=== PATIENT | female | born 1985 ===

== ENCOUNTER 2017-03-10 18:59 | Emergency (ER) | payer MEDICAID ==
[2017-03-10 20:48] VITALS: BP 109/73; PULSE 76; RESP 17; TEMP 98.3; O2SAT 99
--- NOTE | 2017-03-10 21:28 | ED PDOC ---
Lower Extremity Pain/Injury Time Seen by Provider: 03/10/17 20:52 Chief Complaint (Nursing): Lower Extremity Problem/Injury History Per: Patient History/Exam Limitations: no limitations Onset/Duration Of Symptoms: Days Current Symptoms Are (Timing): Still Present Additional Complaint(s): 38 wks , sent down from OB clinic (after being cleared) for eval of RLE swelling x months. no trauma. no sob or other complaints. Past Medical History Reviewed: Historical Data, Nursing Documentation, Vital Signs Vital Signs: Last Vital Signs Temp 98.3 F 03/10/17 20:42 Pulse 76 03/10/17 20:42 Resp 17 03/10/17 20:42 BP 109/73 03/10/17 20:42 Pulse Ox 99 03/10/17 20:42 - Family History Family History: States: Unknown Family Hx - Allergies Allergies/Adverse Reactions: Allergies Allergy/AdvReac Type Severity Reaction Status Date / Time No Known Allergies Allergy Verified 03/10/17 20:46 Physical Exam - Reviewed Nursing Documentation Reviewed: Yes - Physical Exam Appears: Positive for: Well, Non-toxic, No Acute Distress Head Exam: Positive for: ATRAUMATIC, NORMAL INSPECTION, NORMOCEPHALIC Skin: Positive for: Normal Color, Warm, DRY Eye Exam: Positive for: EOMI, Normal appearance, PERRL ENT: Positive for: Normal ENT Inspection Neck: Positive for: Normal, Painless ROM Cardiovascular/Chest: Positive for: Regular Rate, Rhythm Respiratory: Positive for: CNT, Normal Breath Sounds Gastrointestinal/Abdominal: Positive for: Normal Exam, Bowel Sounds, Soft Back: Positive for: Normal Inspection Extremity: Positive for: Pedal Edema (R foot swelling worse than L, mild swelling to R thigh and varicosities ) Neurologic/Psych: Positive for: Alert, Oriented - ECG O2 Sat by Pulse Oximetry: 99 Medical Decision Making Medical Decision Making: r/o DVT, likely dependent edema and varicose veins 2/2 to 1040PM: IMPRESSION: No DVT in visualized veins of the right lower extremity. Told patient to f/u w/ OB, return precautions given. Will d/c home. Disposition - Clinical Impression Clinical Impression: Swelling of lower extremity during - Patient ED Disposition Is Patient to be Admitted: No - Disposition [facility] Disposition: Routine/Home Disposition Time: 22:45 Condition: STABLE Instructions: Leg Edema (ED) Print Language: POLISH
--- NOTE | 2017-03-10 22:31 | US ---
EXAM: US Duplex Right Lower Extremity Veins CLINICAL HISTORY: 31 years old, female; Signs and symptoms; Swelling of limb; Lower extremity, right; Additional info: R/O dvt, 38 wks preg TECHNIQUE: Real-time ultrasound scan of the veins of the right lower extremity with color Doppler flow, spectral waveform analysis and compression. COMPARISON: No relevant prior studies available. FINDINGS: No DVT in the visualized common femoral, femoral, proximal deep femoral, popliteal or posterior tibial veins. The veins are compressible with normal color flow and augmentation. IMPRESSION: No DVT in visualized veins of the right lower extremity.
== END 2017-03-10 23:09 | disposition home or self-care (01) ==
LOC: H.ER 18:59
DX: R60.0 Localized edema (principal); Z33.1 Pregnant state, incidental

== ENCOUNTER 2017-03-16 02:25 | Inpatient (IN) | payer MEDICAID ==
[2017-03-16 03:15] VITALS: BMI 27.3
[2017-03-16 04:17] LABS: BASO # 0.1 K/uL (0.0-0.2); BASO % 0.7 % (0.0-2.0); EOS % 0.4 % (0.0-4.0); HEMATOCRIT 29.1 % (34.0-47.0); LYMPH # 1.7 K/uL (1.0-4.3); LYMPH % 21.5 % (20.0-40.0); MEAN CELL VOLUME 81.4 fl (81.0-99.0); MEAN CORPUSCULAR HGB CONC 33.1 g/dL (33.0-37.0); MEAN PLATELET VOLUME 10.9 fl (7.2-11.7); MONO # 0.6 K/uL (0.0-0.8); MONO % 7.4 % (0.0-10.0); NEUT # 5.4 K/uL (1.8-7.0); NRBC % 0.2 % (0.0-0.0); RED CELL DISTRIBUTION WIDTH 15.5 % (11.5-14.5); WHITE BLOOD COUNT 7.7 K/uL (4.8-10.8)
[2017-03-16 06:14] VITALS: BP 134/80; PULSE 69; RESP 18; TEMP 98.9; O2SAT 100
--- NOTE | 2017-03-16 06:36 | OBHP ---
Datetime: 03/16/2017 03:33 IP Adm Impression: Term, intrauterine ; Active labor; Ruptured Membranes IP Admit Plan: Admit to unit; Initiate labor protocol Admit Comment, IP Provider: PABLO [id number] 31 y/o @ 39 weeks presents with LOF. Pt reports feeling gush of fluid at 1:15am which woke he r up. The LOF is associated with CTX that she has been feeling since yesterday afternoon. CTX are abo ut 10 minutes apart and 3/10 in pain. No other complaints. Denies VB and reports good FM. POBhx: , all , no complications : Blood type O+, GBS neg, Rubella Immune, no third trimester labs available PMHx:none Meds: PNVs only PsurgHx: none PhospHx: none other than for deliveries Familial Hx: neg and nonpertient Social: denies ETOH, tobacco, drug use A/P: 31 y/o @ 38 weeks IUP -admit to unit -Cervidil -CBC, Type and Screen, RPR, HIV - monitoring -case discussed with Dr. Jovany Wilson MD PGY1 @3:40am The patient was seen with resident I agree with the notes. Patient noted to have un ripe cervix ru ptured membranes start Cervidil adequate pelvis vertex presentation anticipate vaginal delivery estim ated weight 7-1/2 pounds Pelvic Type - PN: Adequate Extremities - PN: Normal Abdomen - PN: Normal Back - PN: Normal Breast - PN: Normal Lungs - PN: Normal Heart - PN: Normal Thyroid - PN: Normal Neurologic - PN: Normal HEENT - PN: Normal General - PN: Normal FHR - Baseline A Provider: 141 Amniotic Fluid Color, Provider: Clear Membranes, Provider: Ruptured Contraction Comments Provider: yes Pool Provider: Positive Nitrazine Provider: Positive EGA AdmitDate IP: 39.0 Vital Signs Provider: Reviewed; Within Normal Limits IP Chief Complaint: Uterine contractions; Suspected ruptured membranes NICHD Variability Prov Fetus A: Moderate 6-25bpm NICHD Accel Fetus A IP Provider: [id number] FHR Category Provider Fetus A: Category I NICHD Decel Fetus A IP Provider: None Dilatation, Provider: 1 Effacement, Provider: 25 Station, Provider: -4 Genitourinary Exam: Normal DTRs - PN: Normal Datetime: 03/10/2017 20:02 IP Chief Complaint Other: leg pain IP Adm Impression Other: suspected DVT Comments, ACOG Physical Exam: CVS: RRR, S1S2, No tachycardia, MRG Lungs: CTA B/L, good breath sounds thoughout No accessory muscle usage, No WRR. Extremities: bilateral varicosities appreciated. Tenderness on medial aspect of right leg in locat ion of medial knee extending to medial thigh. Large varicosity in same location. No erythema. -no pedal edema -DP pulses 2+ bilaterally -No calf pain -Neg Homans bilaterally.
[2017-03-16] MEDS ORDERED: Lactated Ringer's 1,000 ML IV SCH ×5 (07:30→17:10)
[2017-03-16] MEDS ORDERED: Nalbuphine 20 mg/ml Inj (1 ml) IVP STA (09:43)
[2017-03-16] MEDS ORDERED: Lactated Ringer's 500 ML IV SCH (09:45)
--- NOTE | 2017-03-16 09:55 | OBPN ---
Datetime: 03/16/2017 09:49 IP Progress Impression: Rupture of membranes IP Progress Plan: Continue present management Contraction Comments Provider: 1-4min FHR - Baseline A Provider: 130 Presentation-Admit: Vertex IP Progress Note Comment: sss: c/o painful ctxs; states she did not sleep overnight. I: 39wk w/ prom and subsequent onset of labor. p: begin ivf. 2s. desires nubain. declines epidural 3. cervidel had not been placed. Vital Signs Provider: Within Normal Limits NICHD Accel Fetus A IP Provider: [id number] FHR Category Provider Fetus A: Category I NICHD Variability Prov Fetus A: Moderate 6-25bpm Dilatation, Provider: 3 Effacement, Provider: 60 Station, Provider: -1/p/f NICHD Decel Fetus A IP Provider: None Datetime: 03/16/2017 03:33 Pool Provider: Positive Nitrazine Provider: Positive Membranes, Provider: Ruptured Amniotic Fluid Color, Provider: Clear
[2017-03-16] MEDS ORDERED: Oxytocin 30 units/LR 500ML 30 U/500 ML BAG IV SCH (14:52)
[2017-03-16] MEDS ORDERED: Fentanyl/Bupivacaine HCl 250 ML EPI ONE (16:37)
[2017-03-16] MEDS ORDERED: Oxycodone/Acetaminophen 5/325 mg Tab PO PRN ×2 (18:14→20:31)
--- NOTE | 2017-03-16 18:20 | OBDS ---
DELIVERY PERSONNEL Delivery Doctor: Virgilio Fink MD Cigarette Carton Sealer: Rashad Zapata RN/Yesi/WGriGuido/Galo Anesthesiologist: Celia Ho MD Resident: n/a MATERNAL INFORMATION Delivery Anesthesia: Epidural Medications in Delivery: Pitocin Maternal Complications: None Provider Comments: Delivery Note: Dx: 39wks; PROM; Onset of Labor; Augmentation with pitocin Proced: ; mouth and nares suctioned at perineum; plac delivered spontaneously and intact Anesth: epidural-- dr. ho Ob: susan means ebl: 250cc findings: viable male; 9_9 [id number] destination: neon remained in br with pt LABOR SUMMARY EDC: 03/23/2017 00:00 No. Babies in Womb: 1 Attempted: No Labor Anesthesia: Epidural LABOR INFORMATION Reason for Induction: Not Applicable (Annotations: Data stored by [facility] on behalf of user) Onset of Labor: 03/16/2017 01:20 Complete Dilatation: 03/16/2017 17:45 Oxytocin: Augmentation Group B Beta Strep: Negative Antibiotics # of Doses: n/a Antibiotics Time of Last Dose: n/a Steroids Given: None Reason Steroids Not Administered: Not Applicable MEMBRANES Membranes Rupture Method: Spontaneous Rupture of Membranes: 03/16/2017 01:20 Length of Rupture (hrs): 16.57 Amniotic Fluid Color: Clear Amniotic Fluid Amount: Moderate Amniotic Fluid Odor: Normal STAGES OF LABOR Stage 1 hrs: 16 Stage 1 min: 25 Stage 2 hrs: 0 Stage 2 min: 9 Stage 3 hrs: 0 Stage 3 min: 6 Total Time in Labor hrs: 16 Total Time in Labor min: 40 VAGINAL DELIVERY Episiotomy: None Laceration Extension: N/A Laceration Type: None Laceration Repair: Not Applicable Initial Vag Sponge Count: 10 Final Vag Sponge Count: 10 Initial Vag Sharps Count: 0 Final Vag Sharps Count: 0 Sponge Count Correct: Yes Sharps Count Correct: N/A Count Comment: laps=5 sponge=10 BABY A INFORMATION Infant Delivery Date/Time: 03/16/2017 17:54 Method of Delivery: Vaginal Born in Route : No : N/A Forceps: N/A Vacuum Extraction: N/A Shoulder Dystocia : No SHOULDER DYSTOCIA BABY A Delivery Date/Time: 03/16/2017 17:54 PRESENTATION/POSITION BABY A Presentation: Cephalic Cephalic Presentation: Vertex Vertex Position: Left Occipital Anterior Breech Presentation: N/A PLACENTA INFORMATION BABY A Placenta Delivery Time : 03/16/2017 18:00 Placenta Method of Delivery: Spontaneous Placenta Status: Delivered SCORES BABY A Heart Rate 1 min: >100 bpm Resp Effort 1 min: Good Cry Reflex Irritability 1 min: Cough or Sneeze or Pulls Away Muscle Tone 1 min: Active Motion Color 1 min: Body [place], Extremities Blue Resuscitation Effort 1 min: Tactile Stimulation SCORE 1 MIN: 9 Heart Rate 5 min: >100 bpm Resp Effort 5 min: Good Cry Reflex Irritability 5 min: Cough or Sneeze or Pulls Away Muscle Tone 5 min: Active Motion Color 5 min: Body [place], Extremities Blue Resuscitation Effort 5 min: N/A SCORE 5 MIN: 9 INFORMATION BABY A Gestational Age at Delivery: 39.0 Gestational Status: Term Outcome : Liveborn Infant Condition : Stable Infant Sex: Male IDENTIFICATION/MEDS BABY A ID Band Number: [id number] ID Band Location: Left Leg; Left Arm Vitamin K Given : Not Given Erythromycin Given: Not Given WEIGHT/LENGTH BABY A Birthweight (gms): 3490 Infant Weight (lb): 7 Weight (oz): 11 CORD INFORMATION BABY A No. Cord Vessels: 3 Nuchal Cord : N/A Nuchal Cord Other: n/a True Knot: n/a Infant Cord pH Baby Arterial: n/a Infant Cord pH Baby Venous: n/a Cord Blood Taken: Yes Banking/Donate Info: n/a Suction: Mouth; Nose ASSESSMENT BABY A Infant Complications: None Physical Findings at Delivery: Within Normal Limits Infant Respirations: Appears Normal Leather Worker/ALS Called : No Infant Care By: Yesi/Ladonna Transferred To: Remains with Mother
[2017-03-17 06:42] LABS: BASO % 0.4 % (0.0-2.0); EOS % 0.3 % (0.0-4.0); HEMATOCRIT 28.8 % (34.0-47.0); LYMPH # 1.7 K/uL (1.0-4.3); LYMPH % 14.7 % (20.0-40.0); MEAN CORPUSCULAR HEMOGLOBIN 26.1 pg (27.0-31.0); MEAN CORPUSCULAR HGB CONC 31.8 g/dL (33.0-37.0); MEAN PLATELET VOLUME 10.9 fl (7.2-11.7); MONO # 0.8 K/uL (0.0-0.8); MONO % 6.7 % (0.0-10.0); NEUT # 9.2 K/uL (1.8-7.0); NEUT % 77.9 % (50.0-75.0); NRBC % 0.1 % (0.0-0.0); RED CELL DISTRIBUTION WIDTH 15.5 % (11.5-14.5); WHITE BLOOD COUNT 11.8 K/uL (4.8-10.8)
[2017-03-17] MEDS ORDERED: Multivitamin With Minerals Tab PO SCH (09:00)
[2017-03-17] MEDS: Multivitamin With Minerals Tab PO SCH (09:32)
--- NOTE | 2017-03-17 15:44 | OBPPN ---
Datetime: 03/17/2017 05:51 PP Pain Prov: Within normal limits PP Nausea Prov: Denies PP Flatus Prov: Yes PP BM Prov: Yes PP Breasts Prov: Normal PP Heart Prov: Normal PP Lungs Prov: Normal PP Abdomen/Uterus Prov: Normal PP Lochia Prov: Normal PP Vulva/Perineum Prov: Normal PP CVA Tenderness Prov: Normal PP Extremities Prov: Normal PP C/S Incision Prov: Not Applicable PP Progress Prov: Normal PP Comments Phys Exam Prov: ABD: +BS, soft, NT/ND. Fundus firm at level just below umbilicus. EXT: calves NT, homans neg B/L PP Impression Prov: Normal progression PP Plan Prov: Continue present management PP Progress Note Prov: S: pt seen and examined at bedside this morning. No acute events overnight. P t reports minimal pain but doesnt require medication for control. OOB/ambulating w/o difficulty. [place] [address] and bottle feeding w/o difficulty. Tolerating PO intake well. Bleeding/lochia is minimal. +BM. Den ies fever/chills, CP/SOB, N/V/D, urinary symtpoms, calf pain. A/P: 31 y/o s/p on 03/16 doing well on PPD#1. -continue current management -Ibuprofen 600mg PO PRN Pain -OOB/ambulation - encouraged -Anticipate DC 03/18/2017 Cipriano Wilson MD PGY1 @ 5:56am Addendum by Dr. Frye: I have evaluated the patient independently and I agree with the above. The patient is PPD #1, stable, continue routine orders Vital Signs Provider PP: Reviewed; Within Normal Limits
[2017-03-18] MEDS: Multivitamin With Minerals Tab PO SCH (09:18)
--- NOTE | 2017-03-18 11:51 | OBPPN ---
Datetime: 03/18/2017 06:24 PP Pain Prov: Within normal limits PP Nausea Prov: Denies PP Flatus Prov: Yes PP BM Prov: Yes PP Breasts Prov: Normal PP Heart Prov: Normal PP Lungs Prov: Normal PP Abdomen/Uterus Prov: Normal PP Lochia Prov: Normal PP Vulva/Perineum Prov: Normal PP CVA Tenderness Prov: Normal PP Extremities Prov: Normal PP C/S Incision Prov: Not Applicable PP Progress Prov: Normal PP Comments Phys Exam Prov: ABD: +BS, soft, NT/ND. Fundus firm at level of umbilicus PP Impression Prov: Normal progression PP Plan Prov: Discharge PP Progress Note Prov: S: pt seen and examined at bedside this morning. No acute events overnight. P t reports minimal pain but doesnt require medication for control. OOB/ambulating w/o difficulty. [place] [address] and bottle feeding w/o difficulty. Tolerating PO intake well. Bleeding/lochia is minimal. +BM. Den ies fever/chills, CP/SOB, N/V/D, urinary symtpoms, calf pain. A/P: 31 y/o s/p on 03/16 doing well on PPD#2. -DC Today -Ibuprofen 600mg PO PRN Pain -OOB/ambulation - encouraged -nothing per vagina -f/u with [facility] in 6 weeks Cipriano Wilson MD PGY1 @6:25am Addendum by Dr. Frye: Patient seen and examined independently and I agree with the above. Patient to be discharged today, discharge instructions reviewed Vital Signs Provider PP: Reviewed; Within Normal Limits
== END 2017-03-18 16:30 | disposition home or self-care (01) | DRG 372 ==
LOC: H.EROB2 02:25 → H.L&D 03:29 → H.OB/GYN 20:30
PROVIDERS: ADMIT Obstetrics & Gynecology Gynecology; ATTEND Obstetrics & Gynecology Gynecology
PROC: 10E0XZZ Delivery of Products of Conception, External Approach (ICD-10-PCS; principal; 2017-03-16)
PROC: 4A1HXCZ Monitoring of Products of Conception, Cardiac Rate, External Approach (ICD-10-PCS; 2017-03-16)
DX: O42.02 Full-term premature rupture of membranes, onset of labor within 24 hours of rupture (principal); Z37.0 Single live birth; Z3A.39 39 weeks gestation of pregnancy